=== PATIENT | male | born 1935 | race Caucasian/White ===

== ENCOUNTER 2017-12-17 19:59 | Inpatient (IN) | payer MEDICARE, BC ==
[~2017-12-17] VITALS: Ht 182.9 cm; Wt 106.6 kg
--- NOTE | 2017-12-17 21:37 | Emergency Room Report ---
History of Present Illness General Chief Complaint: Multiple Trauma/Fall Source: Patient, Family Member, EMS Present Illness HPI The patient states that he was going down the stairs and missed the last step and fell onto his right hip. He was unable to bear weight on the right leg after this. He denies any prodromal symptoms. He did not have lightheadedness or chest pain. He had no palpitations or shortness of breath. He denies that he had abdominal pain. He states he just accidentally missed the last step because he was in a hurry. He has no other injuries or complaints. Allergies: Coded Allergies: No Known Allergies (Unverified , 12/17/17) Patient History Past Medical History: see triage record, DM, HTN Social History: Denies: smoking, alcohol use, drug use Reviewed Nursing Documentation: PMH: Agreed, PSxH: Agreed Nursing Documentation-PMH Hx Cardiac Problems: Yes Hx Hypertension: Yes Hx Diabetes: Yes Review of Systems All Other Systems: negative except mentioned in HPI Physical Exam Vital Signs Date Time Temp Pulse Resp B/P (MAP) Pulse Ox O2 Delivery O2 Flow Rate FiO2 12/17/17 20:12 97.3 92 17 181/102 100 Room Air 97.3 Sp02 EP Interpretation: reviewed, normal General Appearance: no apparent distress, alert, GCS 15, non-toxic Head: normocephalic, atraumatic Eyes: bilateral eye normal inspection, bilateral eye PERRL ENT: hearing grossly normal, normal pharynx, no angioedema, normal voice Neck: full range of motion, supple/symm/no masses Respiratory: chest non-tender, lungs clear, normal breath sounds, no respiratory distress, no retraction, no accessory muscle use, speaking full sentences Cardiovascular #1: regular rate, rhythm, no edema Gastrointestinal: normal bowel sounds, non tender, soft, non-distended, no guarding, no rebound Rectal: deferred Genitourinary: normal inspection, no CVA tenderness Musculoskeletal: other - Right leg internally rotated and shortened. Pain with range of motion of the right hip. Neurologic: alert, oriented x3, responsive, motor strength/tone normal, sensory intact, speech normal Psychiatric: judgement/insight normal, memory normal, mood/affect normal, no suicidal/homicidal ideation Skin: normal color, no rash, warm/dry, well hydrated Medical Decision Making Diagnostic Impression: Primary Impression: Hip fracture, right ER Course This patient has a right hip fracture. He is admitted for surgical repair. He has no evidence of other injuries. Labs Test 12/17/17 21:20 12/18/17 08:45 Prothrombin Time 10.4 SEC (9.30-11.50) Prothromb Time International Ratio 1.0 (0.9-1.1) Activated Partial Thromboplast Time 27 SEC (23-33) Sodium Level 138 MMOL/L (136-145) Potassium Level 4.3 MMOL/L (3.5-5.1) Chloride Level 102 MMOL/L (98-107) Carbon Dioxide Level 28 MMOL/L (21-32) Anion Gap 8 mmol/L (5-15) Blood Urea Nitrogen 20 mg/dL (7-18) Creatinine 1.3 MG/DL (0.55-1.30) Estimat Glomerular Filtration Rate mL/min (>60) Glucose Level 164 MG/DL (74-106) Calcium Level 9.1 MG/DL (8.5-10.1) Total Bilirubin 0.3 MG/DL (0.2-1.0) Aspartate Amino Transf (AST/SGOT) 16 U/L (15-37) Alanine Aminotransferase (ALT/SGPT) 25 U/L (12-78) Alkaline Phosphatase 75 U/L (46-116) Total Protein 6.6 G/DL (6.4-8.2) Albumin 3.3 G/DL (3.4-5.0) Globulin 3.3 g/dL Albumin/Globulin Ratio 1.0 (1.0-2.7) White Blood Count 11.8 K/UL (4.8-10.8) Red Blood Count 4.25 M/UL (4.70-6.10) Hemoglobin 12.8 G/DL (14.2-18.0) Hematocrit 37.3 % (42.0-52.0) Mean Corpuscular Volume 88 FL (80-99) Mean Corpuscular Hemoglobin 30.0 PG (27.0-31.0) Mean Corpuscular Hemoglobin Concent 34.2 G/DL (32.0-36.0) Red Cell Distribution Width 12.4 % (11.6-14.8) Platelet Count 226 K/UL (150-450) Mean Platelet Volume 6.3 FL (6.5-10.1) Neutrophils (%) (Auto) 83.6 % (45.0-75.0) Lymphocytes (%) (Auto) 10.1 % (20.0-45.0) Monocytes (%) (Auto) 6.2 % (1.0-10.0) Eosinophils (%) (Auto) 0.0 % (0.0-3.0) Basophils (%) (Auto) 0.1 % (0.0-2.0) Hemoglobin A1c 7.7 % (4.3-6.0) Triglycerides Level 53 MG/DL (30-150) Cholesterol Level 120 MG/DL (< 200) LDL Cholesterol 56 mg/dL (<100) HDL Cholesterol 57 MG/DL (40-60) Cholesterol/HDL Ratio 2.1 (3.3-4.4) Other X-Ray Diagnostic Results Other X-Ray Diagnostic Results : X-Ray ordered: R. hip xray # of Views/Limited Vs Complete: 2 View Indication: Pain EP Interpretation: Yes Interpretation: other - irregularily concerning for hip fracture. Impression: Other Electronically Signed by: Juanita CT/MRI/US Diagnostic Results CT/MRI/US Diagnostic Results : Imaging Test Ordered: CT R. hip Impression IMPRESSION: Unusual fracture involving the intracapsular portion of the femoral neck extending into the intertrochanteric, subtrochanteric aspects of the hip and the proximal femoral shaft. [facility] has communicated the preliminary results to the Emergency Department. Their findings are largely concordant with this report. Last Vital Signs Date Time Temp Pulse Resp B/P (MAP) Pulse Ox O2 Delivery O2 Flow Rate FiO2 12/17/17 20:12 97.3 92 17 181/102 100 Room Air 97.3 Disposition: ADMITTED INPATIENT Condition: Serious Referrals: NOT CHOSEN POORNIMA/,REFERRING (PCP) MERLIN KELLY D.O. Dec 17, 2017 21:37
[2017-12-17 21:46] LABS: BASOPHILS % (AUTO) 0.4 % (0.0-2.0); EOSINOPHILS % (AUTO) 0.3 % (0.0-3.0); HEMATOCRIT 39.8 % (42.0-52.0); HEMOGLOBIN 13.6 G/DL (14.2-18.0); LYMPHOCYTES % (AUTO) 16.2 % (20.0-45.0); MEAN CORPUSCULAR VOLUME 88 FL (80-99); MONOCYTES % (AUTO) 8.5 % (1.0-10.0); NEUTROPHILS % (AUTO) 74.6 % (45.0-75.0); PLATELET COUNT 208 K/UL (150-450); RED BLOOD COUNT 4.55 M/UL (4.70-6.10); RED CELL DISTRIBUTION WIDTH 12.4 % (11.6-14.8); WHITE BLOOD COUNT 8.5 K/UL (4.8-10.8)
[2017-12-17 22:06] LABS: ANION GAP 8 mmol/L (5-15); BLOOD UREA NITROGEN 20 mg/dL (7-18); CALCIUM 9.1 MG/DL (8.5-10.1); CARBON DIOXIDE 28 MMOL/L (21-32); CHLORIDE 102 MMOL/L (98-107); CREATININE 1.3 MG/DL (0.55-1.30); POTASSIUM 4.3 MMOL/L (3.5-5.1); SODIUM 138 MMOL/L (136-145)
[2017-12-17 22:11] LABS: ALANINE AMINOTRANSFERASE 25 U/L (12-78); ALBUMIN 3.3 G/DL (3.4-5.0); ALKALINE PHOSPHATASE 75 U/L (46-116); ASPARTATE AMINO TRANSFERASE 16 U/L (15-37); BILIRUBIN,TOTAL 0.3 MG/DL (0.2-1.0)
[2017-12-17 23:10] VITALS: BP 94/47
[2017-12-18] VITALS (8 sets, daily range): BP systolic 109–154; BP diastolic 50–77
[2017-12-18] MEDS ORDERED: Morphine Sulfate 4mg/ml Inj IVP ONE
[2017-12-18] MEDS ORDERED: LANTUS SOL100 UNIT/1 SUBQ (02:04)
[2017-12-18] MEDS ORDERED: SIMVASTATIN10 MG ORAL (02:04)
[2017-12-18] MEDS ORDERED: FUROSEMIDE20 M1 ORAL (02:04)
[2017-12-18] MEDS ORDERED: POTASSIUM99 M3 PO (02:04)
[2017-12-18] MEDS ORDERED: HUMALOG100 UNIT/4 SUBQ (02:04)
[2017-12-18] MEDS ORDERED: B-12500 MC2 SL (02:04)
[2017-12-18] MEDS ORDERED: PROSCAR5 MG ORAL (02:04)
[2017-12-18] MEDS ORDERED: TAMSULOSIN HCL0.4 MG ORAL (02:04)
[2017-12-18] MEDS ORDERED: MULTIVITAMINS1 EAC2 ORAL (02:04)
[2017-12-18] MEDS ORDERED: ASPIRIN325 MG ORAL (02:04)
[2017-12-18] MEDS ORDERED: VITAMIN D1000 UNI1 ORAL (02:04)
[2017-12-18] MEDS ORDERED: NORVASC5 MG ORAL (02:04)
[2017-12-18] MEDS ORDERED: DIOVAN HCT 1601 EACH ORAL (02:04)
[2017-12-18] MEDS ORDERED: ALLOPURINOL100 M1 ORAL (02:04)
[2017-12-18] MEDS ORDERED: GLUCOPHAGE850 MG ORAL ×2 (02:04)
[2017-12-18] MEDS ORDERED: Morphine Sulfate 4mg/ml Inj IVP PRN ×2 (03:45→15:45)
[2017-12-18] MEDS ORDERED: Norco 5mg/325mg tab ORAL PRN ×2 (03:45→15:45)
[2017-12-18] MEDS: NovoLOG Insulin Flexpen SUBQ SCH ×6 (07:52→20:40)
[2017-12-18] MEDS ORDERED: Vitamin D 1000 IU Tab ORAL SCH (09:00)
[2017-12-18] MEDS ORDERED: Enoxaparin 40mg Inj SUBQ SCH (09:00)
[2017-12-18] MEDS ORDERED: Irbesartan 150mg tablet ORAL SCH (09:00)
[2017-12-18] MEDS ORDERED: Allopurinol 100mg Tab ORAL SCH (09:00)
[2017-12-18] MEDS ORDERED: hydroCHLOROthiazide 12.5mg TAB ORAL SCH (09:00)
[2017-12-18 09:05] LABS: BASOPHILS % (AUTO) 0.1 % (0.0-2.0); HEMATOCRIT 37.3 % (42.0-52.0); HEMOGLOBIN 12.8 G/DL (14.2-18.0); LYMPHOCYTES % (AUTO) 10.1 % (20.0-45.0); MEAN CORPUSCULAR VOLUME 88 FL (80-99); MONOCYTES % (AUTO) 6.2 % (1.0-10.0); NEUTROPHILS % (AUTO) 83.6 % (45.0-75.0); PLATELET COUNT 226 K/UL (150-450); RED BLOOD COUNT 4.25 M/UL (4.70-6.10); RED CELL DISTRIBUTION WIDTH 12.4 % (11.6-14.8); WHITE BLOOD COUNT 11.8 K/UL (4.8-10.8)
[2017-12-18 09:14] LABS: CHOLESTEROL 120 MG/DL (< 200); HDL CHOLESTEROL 57 MG/DL (40-60); TRIGLYCERIDES 53 MG/DL (30-150)
--- NOTE | 2017-12-18 10:21 | Diagnostic Imaging Report ---
Indication: Hip pain Technique: continuous helical imaging in the transaxial plane was performed from the iliac crests to the pubic symphysis with attention to the right hip. Coronal 2-D reformatted images were also generated. Study obtained in a Siemens Sensation [address] total DLP: 1180.33 mGycm CTD/vol: 20.41 mGy Comparison: None Findings: Unusual fracture of the intratrochanteric region of the right hip noted. There is a fracture of the lesser trochanter and intertrochanteric region. However the fracture line extends into the intracapsular aspect of the femoral neck. The fracture extends inferiorly as a spiral type fracture involving the subtrochanteric and proximal shaft of the femur. Vascular calcifications are present within the femoral and iliac arteries. The bones are osteopenic. There is mild arthrosis involving both hips. IMPRESSION: Unusual fracture involving the intracapsular portion of the femoral neck extending into the intertrochanteric, subtrochanteric aspects of the hip and the proximal femoral shaft. [facility] has communicated the preliminary results to the Emergency Department. Their findings are largely concordant with this report. The CT scanner at [facility] is accredited by the [employer] and the scans are performed using dose optimization techniques as appropriate to a performed exam including Automatic Exposure control.
--- NOTE | 2017-12-18 11:05 | Diagnostic Imaging Report ---
Indication: pain Pelvic trauma and pain Findings: Single AP view of the pelvis and right hip was performed. There is a fracture of the right proximal femur and intertrochanteric region with involvement of the lesser trochanter. The study is significantly limited due to artifacts. CT was obtained subsequently. IMPRESSION: Acute fracture. Please refer to the CT report
--- NOTE | 2017-12-18 16:00 | History & Physical ---
History and Physical History & Physicial seen and examined. Dic completed Almita Humphreys MD Dec 18, 2017 16:00
--- NOTE | 2017-12-18 16:04 | General Progress Note ---
Assessment/Plan Status: stable Assessment/Plan 1- Mechanical fall. Rt Hip fracture 2- CAD- h/o of 3. HTN 4. HLP 5. Gout 6. BPH Plan: Dr Dahl - sx Dr Calero- Cardio Dr Cleary-infection Dr Turpin- Endo Per family request, ok to transfer to [place] at this time Will transfer to [facility] ROS Limited/Unobtainable: No Constitutional: Reports: no symptoms HEENT: Reports: no symptoms Cardiovascular: Reports: no symptoms Allergies: Coded Allergies: No Known Allergies (Unverified , 12/17/17) Objective Last 24 Hour Vital Signs Date Time Temp Pulse Resp B/P (MAP) Pulse Ox O2 Delivery O2 Flow Rate FiO2 12/18/17 14:14 81 20 138/65 95 Room Air 12/18/17 13:06 98.7 12/18/17 12:07 98.7 12/18/17 12:00 98.6 88 18 139/60 95 Room Air 98.6 12/18/17 12:00 98.6 88 20 139/60 93 Room Air 98.6 12/18/17 09:07 122/77 12/18/17 09:06 135 126/77 12/18/17 08:00 98.7 131 20 126/77 95 Room Air 98.7 12/18/17 04:00 98.7 91 19 136/59 98 Room Air 98.7 12/18/17 02:35 98.6 88 18 142/63 98 Room Air 98.6 12/18/17 02:15 98.0 70 18 154/63 95 Room Air 98.0 12/18/17 02:05 98.0 70 18 154/63 95 Room Air 98.0 12/18/17 00:26 98.0 12/17/17 23:56 97.8 12/17/17 23:10 97.8 66 18 94/47 96 Room Air 97.8 12/17/17 20:12 97.3 92 17 181/102 100 Room Air 97.3 Intake and Output 12/17/17 12/18/17 19:00 07:00 # Voids 1 Laboratory Tests 12/17/17 21:20: White Blood Count 8.5, Red Blood Count 4.55L, Hemoglobin 13.6L, Hematocrit 39.8L , Mean Corpuscular Volume 88, Mean Corpuscular Hemoglobin 29.9, Mean Corpuscular Hemoglobin Concent 34.1, Red Cell Distribution Width 12.4, Platelet Count 208, Mean Platelet Volume 6.5, Neutrophils (%) (Auto) 74.6, Lymphocytes (% ) (Auto) 16.2L, Monocytes (%) (Auto) 8.5, Eosinophils (%) (Auto) 0.3, Basophils (%) (Auto) 0.4, Prothrombin Time 10.4, Prothromb Time International Ratio 1.0, Activated Partial Thromboplast Time 27, Sodium Level 138, Potassium Level 4.3, Chloride Level 102, Carbon Dioxide Level 28, Anion Gap 8, Blood Urea Nitrogen 20H, Creatinine 1.3, Estimat Glomerular Filtration Rate , Glucose Level 164H, Calcium Level 9.1, Total Bilirubin 0.3, Aspartate Amino Transf (AST/SGOT) 16, Alanine Aminotransferase (ALT/SGPT) 25, Alkaline Phosphatase 75, Total Protein 6.6, Albumin 3.3L, Globulin 3.3, Albumin/Globulin Ratio 1.0 12/18/17 08:45: White Blood Count 11.8H, Red Blood Count 4.25L, Hemoglobin 12.8L, Hematocrit 37.3L, Mean Corpuscular Volume 88, Mean Corpuscular Hemoglobin 30.0, Mean Corpuscular Hemoglobin Concent 34.2, Red Cell Distribution Width 12.4, Platelet Count 226, Mean Platelet Volume 6.3L, Neutrophils (%) (Auto) 83.6H, Lymphocytes (%) (Auto) 10.1L, Monocytes (%) (Auto) 6.2, Eosinophils (%) (Auto) 0.0, Basophils (%) (Auto) 0.1, Hemoglobin A1c 7.7H, Triglycerides Level 53, Cholesterol Level 120, LDL Cholesterol 56, HDL Cholesterol 57, Cholesterol/HDL Ratio 2.1L Height (Feet): 6 Height (Inches): 0.00 Weight (Pounds): 235 General Appearance: no apparent distress EENT: PERRL/EOMI Neck: supple Cardiovascular: normal rate Respiratory/Chest: lungs clear Abdomen: soft Extremities: non-tender, other - righ femur fractue, and decreased ROM 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
--- NOTE | 2017-12-18 16:24 | Consultation ---
Consult Note Consult Note ID DIC # [id number] PARVEZ CROWE M.D. Dec 18, 2017 16:24
[2017-12-18] MEDS ORDERED: NovoLOG Insulin Flexpen SUBQ SCH (16:50)
--- NOTE | 2017-12-18 18:54 | Cardiology Progress Note ---
Assessment/Plan Assessment/Plan The patient is seen and examined, full consult note will be dictated shortly. Objective Last 24 Hour Vital Signs Date Time Temp Pulse Resp B/P (MAP) Pulse Ox O2 Delivery O2 Flow Rate FiO2 12/18/17 16:00 99.0 91 21 129/67 94 Room Air 99.0 91 12/18/17 16:00 89 12/18/17 14:14 81 20 138/65 95 Room Air 12/18/17 13:06 98.7 12/18/17 12:07 98.7 12/18/17 12:00 98.6 88 18 139/60 95 Room Air 98.6 12/18/17 12:00 98.6 88 20 139/60 93 Room Air 98.6 12/18/17 09:07 122/77 12/18/17 09:06 135 126/77 12/18/17 08:00 98.7 131 20 126/77 95 Room Air 98.7 12/18/17 04:00 98.7 91 19 136/59 98 Room Air 98.7 12/18/17 02:35 98.6 88 18 142/63 98 Room Air 98.6 12/18/17 02:15 98.0 70 18 154/63 95 Room Air 98.0 12/18/17 02:05 98.0 70 18 154/63 95 Room Air 98.0 12/18/17 00:26 98.0 12/17/17 23:56 97.8 12/17/17 23:10 97.8 66 18 94/47 96 Room Air 97.8 12/17/17 20:12 97.3 92 17 181/102 100 Room Air 97.3 Intake and Output 12/17/17 12/18/17 19:00 07:00 # Voids 1 Laboratory Tests Test 12/17/17 21:20 12/18/17 08:45 White Blood Count 8.5 K/UL (4.8-10.8) 11.8 K/UL (4.8-10.8) H Red Blood Count 4.55 M/UL (4.70-6.10) L 4.25 M/UL (4.70-6.10) L Hemoglobin 13.6 G/DL (14.2-18.0) L 12.8 G/DL (14.2-18.0) L Hematocrit 39.8 % (42.0-52.0) L 37.3 % (42.0-52.0) L Mean Corpuscular Volume 88 FL (80-99) 88 FL (80-99) Mean Corpuscular Hemoglobin 29.9 PG (27.0-31.0) 30.0 PG (27.0-31.0) Mean Corpuscular Hemoglobin Concent 34.1 G/DL (32.0-36.0) 34.2 G/DL (32.0-36.0) Red Cell Distribution Width 12.4 % (11.6-14.8) 12.4 % (11.6-14.8) Platelet Count 208 K/UL (150-450) 226 K/UL (150-450) Mean Platelet Volume 6.5 FL (6.5-10.1) 6.3 FL (6.5-10.1) L Neutrophils (%) (Auto) 74.6 % (45.0-75.0) 83.6 % (45.0-75.0) H Lymphocytes (%) (Auto) 16.2 % (20.0-45.0) L 10.1 % (20.0-45.0) L Monocytes (%) (Auto) 8.5 % (1.0-10.0) 6.2 % (1.0-10.0) Eosinophils (%) (Auto) 0.3 % (0.0-3.0) 0.0 % (0.0-3.0) Basophils (%) (Auto) 0.4 % (0.0-2.0) 0.1 % (0.0-2.0) Prothrombin Time 10.4 SEC (9.30-11.50) Prothromb Time International Ratio 1.0 (0.9-1.1) Activated Partial Thromboplast Time 27 SEC (23-33) Sodium Level 138 MMOL/L (136-145) Potassium Level 4.3 MMOL/L (3.5-5.1) Chloride Level 102 MMOL/L (98-107) Carbon Dioxide Level 28 MMOL/L (21-32) Anion Gap 8 mmol/L (5-15) Blood Urea Nitrogen 20 mg/dL (7-18) H Creatinine 1.3 MG/DL (0.55-1.30) Estimat Glomerular Filtration Rate mL/min (>60) Glucose Level 164 MG/DL (74-106) H Calcium Level 9.1 MG/DL (8.5-10.1) Total Bilirubin 0.3 MG/DL (0.2-1.0) Aspartate Amino Transf (AST/SGOT) 16 U/L (15-37) Alanine Aminotransferase (ALT/SGPT) 25 U/L (12-78) Alkaline Phosphatase 75 U/L (46-116) Total Protein 6.6 G/DL (6.4-8.2) Albumin 3.3 G/DL (3.4-5.0) L Globulin 3.3 g/dL Albumin/Globulin Ratio 1.0 (1.0-2.7) Hemoglobin A1c 7.7 % (4.3-6.0) H Triglycerides Level 53 MG/DL (30-150) Cholesterol Level 120 MG/DL (< 200) LDL Cholesterol 56 mg/dL (<100) HDL Cholesterol 57 MG/DL (40-60) Cholesterol/HDL Ratio 2.1 (3.3-4.4) RIDGE HANSEN Dec 18, 2017 18:54
[2017-12-18] MEDS ORDERED: Digoxin 0.5mg/2ml Inj IVP ONE (19:30)
[2017-12-18] MEDS ORDERED: Tamsulosin 0.4mg cap ORAL SCH ×2 (21:00)
[2017-12-18] MEDS ORDERED: Levemir Flexpen SUBQ SCH ×3 (21:00)
[2017-12-18] MEDS ORDERED: dilTIAZem HCl 30mg tab ORAL SCH (22:00)
--- NOTE | 2017-12-18 23:30 | Consultation ---
DATE OF CONSULTATION: 12/18/2017 REFERRING PHYSICIAN: Almita Humphreys M.D. REASON FOR CONSULTATION: Diabetes management. HISTORY OF PRESENT ILLNESS: Mr. Bush is an 82-year-old male with past medical history of type [address] 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 He had a fall from stairs and which led to hip fracture. He is a candidate for hip surgery followed by paramedics brought up to the [facility]. He was admitted to the telemetry bed and he is willing to be transferred to [facility], waiting for a bed. Diabetes, as an outpatient was started on Metformin 850 twice a day, Lantus 24 units at bedtime, and Humalog 12 units before each meal. He has not been doing his daily schedule therefore glucose is elevated. PAST MEDICAL HISTORY: 1. Diabetes as above. 2. Hypertension. 3. Obesity. PAST SURGICAL HISTORY: None. SOCIAL HISTORY: No smoking, alcohol, or drug use. REVIEW OF SYSTEMS: A 12-point review of systems was performed and pertinent positives and negatives are mentioned in present illness. FAMILY HISTORY: Diabetes. MEDICATIONS: Reviewed and reconciled. Diabetes medication as mentioned in the history of present illness. LABORATORY DATA: WBC 11.8, hemoglobin 12.8, hematocrit 37.3, and platelets of 226,000. Sodium 138, potassium 4.3, chloride 102, bicarb 28, BUN 20, and creatinine 1.3. Glucose of 164. Hemoglobin A1c of 7.7. PHYSICAL EXAMINATION: VITAL SIGNS: Blood pressure is 140/80, pulse 70, and temperature 98.2. HEENT: Pupils are equal and reactive to light. Sclerae are anicteric. NECK: No JVD. No thyromegaly. LUNGS: Clear. HEART: Regular rate and rhythm. ABDOMEN: Positive bowel sounds. EXTREMITIES: Positive for edema. DIAGNOSES: 1. Hip fracture. 2. Diabetes out of control. 3. Hypertension. PLAN: 1. Resume Levemir 24 units at bedtime. 2. NovoLog 12 units before each meal. 3. Metformin increased to b.i.d. 4. NovoLog sliding scale before meals and at bedtime. 5. Further adjustment according to blood glucose values. Care discussed with the patient's daughter at the bedside. Thank you, Dr. Humphreys, for the courtesy of this consultation. Carlos Andrade M.D. DR: EDIE JOB#: [id number] CC: ROGER
--- NOTE | 2017-12-18 23:30 | History and Physical Report ---
DATE OF ADMISSION: 12/17/2017 SOURCE OF INFORMATION: The patient and EMR. HISTORY OF PRESENT ILLNESS: The patient is a pleasant 82-year-old white male with history of dementia. The patient is status post mechanical fall and trip at home followed by the x-ray proven fracture of the right hip based on emergency report. The patient denies any loss of consciousness. Denies any seizure activity. Denies any nausea, vomitus, diarrhea, or constipation. At the time of evaluation, the patient appears stable and appears the pain is in good control. PAST MEDICAL HISTORY: Diabetes, hypertension, coronary artery disease, hypertension and history of anticoagulation utilization (details unknown). MEDICATIONS: Home medications including but not limited to allopurinol, amlodipine, aspirin, finasteride, Lasix, valsartan, metformin, insulin Lantus, potassium chloride and simvastatin. ALLERGIES: NKDA. SOCIAL HISTORY: No prior documented history of alcohol abuse, illicit drug abuse, or smoking was reported. FAMILY HISTORY: Reviewed and noncontributory. REVIEW OF SYSTEMS: All 12 elements of review of systems reviewed. Pertinent positives and negatives as above. PHYSICAL EXAMINATION: VITAL SIGNS: Blood pressure 120/80, temperature 98.2 degrees, pulse oximetry 98% on room air and respiratory rate 18. HEAD AND NECK: Atraumatic and normocephalic. CHEST: Clear to auscultation. No wheezing. No crackles. ABDOMEN: Soft. No organomegaly. MUSCULOSKELETAL: No gross lateralized motor deficit. Positive for decreased range of motion in the right lower extremity. NEUROLOGIC: Awake, alert, and oriented times 2 to 3. Decreased attention span. Decreased memory, short-term and long-term, gross evidence of dementia. No gross cranial nerve deficits. PSYCHIATRIC: Mood and affect are appropriate and normal. LABORATORY AND DIAGNOSTIC DATA: Labs dated 12/17/2017 shows WBC 8.5, hemoglobin 15.6 and platelet count of 208,000. Sodium 138, potassium 4.3, BUN 20 and creatinine 1.3. AST and ALT are within normal limits. Pelvic x-ray shows acute fracture of the right proximal femur in intertrochanteric region. CT scan of the hip shows intracapsular portion of the femoral neck fracture. ASSESSMENT: 1. Mechanical fall, acute right-sided proximal femur and intertrochanteric hip fracture. 2. Coronary artery disease - history of no evidence of active acute coronary syndrome. 3. Anemia. 4. Hypertension. 5. Gout. 6. Hyperlipidemia. 7. Benign prostatic hypertrophy. 8. Diabetes, type 2. PLAN OF CARE: I discussed this case with Dr. Dahl, orthopedic surgeon. I consulted Cardiology, Dr. Calero; Infectious Disease, Dr. Cleary; and vmware systems administrator, Dr. Andrade. Continue with current management. COMMENTS: Family and the patient notified me that they would like to be transferred to [facility]. After my conversation with Dr. Dahl, I advised the family regarding the medical necessity of having surgery as soon as possible. I advised them that the unnecessary wait time will decrease the favorable outcome of the surgery. They understood. However, they would like to be transferred to other facility. Case was discussed with case management. We will order for transfer pending the availability of bed. Okay to transfer. Almita Humphreys M.D. DR: Chetan JOB#: [id number] CC:
--- NOTE | 2017-12-19 00:15 | Consultation ---
DATE OF CONSULTATION: 12/18/2017 CARDIOLOGY CONSULTATION CONSULTING PHYSICIAN: Wallace Calero M.D. REFERRING PHYSICIAN: Almita Humphreys M.D. REASON FOR CONSULTATION: Management of tachycardia in the patient with status post fall and right hip fracture. HISTORY OF PRESENT ILLNESS: The patient is a very pleasant 82-year-old gentleman who presents to the hospital with right hip pain after an episode of mechanical fall while he was trying to go down the stairs and missed the last step and fell onto his right hip. He was unable to bear weight on the right leg. He was brought in to this facility. There was no loss of consciousness involved. On arrival to the hospital, blood pressure was 181/102 and heart rate of 92. He was admitted to surgical unit in anticipation of surgical repair. Cardiology consultation was made as he became tachycardic while in the surgical unit and was brought down to the telemetry unit. His rhythm at the time of arrival to this unit was multifocal tachycardia. PAST MEDICAL HISTORY: 1. History of hypertension. 2. History of diabetes mellitus. 3. History of BPH. 4. History of gout. PAST SURGICAL HISTORY: None. SOCIAL HISTORY: Denies any tobacco, alcohol, or illicit drug use. MEDICATIONS: List of medications at home; allopurinol 100 mg p.o. daily, Norvasc 5 mg p.o. daily, aspirin 325 mg p.o. daily, vitamin D 2000 units p.o. daily, vitamin B12 500 mcg p.o. daily, Proscar 5 mg p.o. daily, Lasix 20 mg p.o. daily, Lantus insulin 34 units subcutaneous at bedtime, Humalog insulin 12 units subcutaneous t.i.d., Glucophage 150 mg twice daily, multivitamin 1 tablet p.o. daily, potassium gluconate, simvastatin 10 mg p.o. at bedtime, tamsulosin 0.4 mg p.o. at bedtime, valsartan hydrochlorothiazide 160/12.5 mg p.o. daily. ALLERGIES: No known drug allergies. FAMILY HISTORY: No premature coronary artery disease in first-degree relatives. REVIEW OF SYSTEMS: HEENT: Denies any headache, diplopia, or blurred vision. CONSTITUTIONAL: Denies any fever, chills, night sweats, or weight loss. CARDIOVASCULAR: Denies any chest pain, shortness breath, PND, orthopnea, leg swelling. PULMONARY: Denies any cough, hemoptysis, or wheezing. GASTROINTESTINAL: Denies any nausea, vomiting, diarrhea, constipation, abdominal pain, or GI bleed. GENITOURINARY: Denies any hematuria, dysuria, incontinence. NEUROLOGY: Denies any motor dysfunction, sensory deficit, or altered speech. MUSCULOSKELETAL: Complains of right knee pain. Inability to bear weight on the right leg. PHYSICAL EXAMINATION: VITAL SIGNS: Blood pressure is 181/102, respirations of 17, pulse of 92, temperature 97.3 degrees Fahrenheit, and O2 saturation 100% on room air. GENERAL: The patient is a very pleasant, 82-year-old gentleman, seen in Cardiology consultation,who is in no apparent respiratory distress. HEENT: Atraumatic and normocephalic. Anicteric. Pupils are equal, round, and reactive to light and accommodation. Extraocular muscles intact. NECK: JVP less than 5 cm. No carotid bruits. Carotid upstrokes 2+ bilaterally. CVS: Normal S1 and S2. Irregularly irregular rhythm. No murmurs, gallops, or rubs. PMI is at fourth intercostal space at the midclavicular line. LUNGS: Clear to auscultation bilaterally. ABDOMEN: Soft, nontender, and nondistended. No hepatosplenomegaly. Positive bowel sounds. EXTREMITIES: Right leg is shortened in external rotation, otherwise no edema, clubbing or cyanosis. LABORATORY FINDINGS: Sodium was 138, potassium 4.3, chloride 102, bicarbonate 28, BUN of 20, creatinine 1.3, glucose is 164. Hemoglobin A1c was 7.7. Calcium is 9.1. Triglyceride 53, total cholesterol 120, LDL is 156, HDL of 57. INR is 1.0. WBC is 8.5, hemoglobin 13.6, hematocrit 39.8, and platelet count is 208. There is no 12-lead electrocardiogram in the chart; however, 2D echocardiography has shown normal left ventricular systolic function to the extent visualized. The study is technically difficult. Mild LVH, mild left atrial enlargement, mild aortic root dilatation measured at 4.2 cm, mild mitral regurgitation, grade 1 LV diastolic dysfunction, mild tricuspid regurgitation with right ventricular systolic pressure measured at 45 mmHg consistent with moderate pulmonary hypertension. Chest x-ray not available. ASSESSMENT AND PLAN: The patient is a very pleasant 82-year-old gentleman, seen in Cardiology consultation at request of Dr. Humphreys. 1. Tachycardia, this appears to be multifocal atrial tachycardia based on the rhythm strip from the monitor however 12-lead electrocardiogram has been requested. I would like to give the patient one dose of digoxin and switch the patient from dihydropyridine calcium-channel rosales to a non-dihydropyridine with AV jerome properties. The combination should help better ventricular response with multifocal atrial tachycardia. 2. Status post right hip fracture in anticipation of ORIF right hip, there is a possibility that the patient be transferred to [facility]. We will continue DVT prophylaxis in the meantime. The duration of DVT prophylaxis following hip surgery will be 35 days ideally with Apixaban twice daily. 3. History of hypertension. I would like to continue irbesartan and will switch amlodipine to Cardizem. I will put a hold on both furosemide and hydrochlorothiazide as the patient appears to be dehydrated and his creatinine at this time is 1.3. We will encourage the patient to have p.o. liquids until this surgery. One may have to put hold on the metformin in anticipation of this surgery as well. 4. A 2D echocardiography is technically difficult study shows overall normal LV systolic function. 5. Moderate pulmonary hypertension. 6. Mild aortic root dilatation measured at 4.2 centimeters. Serial echocardiography is required on an annual basis. I would like to thank, Dr. Humphreys, for the courtesy of this consultation. Wallace Calero M.D. DR: Brit JOB#: [id number] CC:
--- NOTE | 2017-12-19 00:15 | Consultation ---
DATE OF CONSULTATION: 12/18/2017 INFECTIOUS DISEASE CONSULTATION CONSULTING PHYSICIAN: Jamaal Cleary M.D. REQUESTING PHYSICIAN: Almita Humphreys M.D.. REASON FOR CONSULTATION: Evaluation of patient for leukocytosis and possible need for antibiotics prior to the surgery. HISTORY OF PRESENT ILLNESS: The patient is an 82-year-old male with multiple medical problems as listed below, who was brought to the hospital after the patient had a fall and subsequent to that developed a right hip fracture. The patient was found to have leukocytosis. Infectious Disease consultation has been requested for further evaluation of the patient's antibiotic management. PAST MEDICAL HISTORY: 1. Hard of hearing. 2. CAD, status post stents x3. 3. Hypertension. 4. Diabetes. ALLERGIES: No known drug allergies. SOCIAL HISTORY: The patient lives at home. FAMILY HISTORY: Noncontributory. REVIEW OF SYSTEMS: HEENT: No recent change in vision or hearing. PULMONARY: No cough or shortness of breath. CARDIOVASCULAR: Palpitations. GASTROINTESTINAL/ABDOMEN: No nausea or vomiting. GENITOURINARY: No dysuria. MUSCULOSKELETAL: As mentioned above. PHYSICAL EXAMINATION: VITAL SIGNS: Temperature 98.6, pulse 86, respiratory rate 18, and blood pressure 139/60. HEENT: No pale conjunctivae. No icterus. NECK: No lymphadenopathy. CHEST: Clear. HEART: S1 and S2. ABDOMEN: Soft. EXTREMITIES: No cyanosis at this time. NEUROLOGIC: Awake and alert. LABORATORY AND DIAGNOSTIC DATA: White blood cells 11.8, hemoglobin 12.8, platelets 224,000. BUN 20, creatinine 1.3. Liver function tests are unremarkable. Hip x-ray shows fracture of right proximal femur. ASSESSMENT: The patient is an 82-year-old male with, 1. Leukocytosis (due to acute stress). Based on exam and history, no evidence of infection. 2. Afebrile. 3. Right hip fracture. PLAN: 1. We will monitor the patient off of antibiotics. 2. Monitor CBC. 3. Monitor BMP. 4. If the patient develops fever or worsening leukocytosis, we may consider starting the patient on antibiotic treatment. Thank you, Dr. Humphreys, for allowing me to participate in the care of this patient. I will follow the patient with you during this hospitalization. Jamaal Cleary M.D. DR: SELMA JOB#: [id number] CC:
[2017-12-19] MEDS ORDERED: hydroCHLOROthiazide 12.5mg TAB ORAL SCH (09:00)
[2017-12-19] MEDS ORDERED: Enoxaparin 40mg Inj SUBQ SCH (09:00)
[2017-12-19] MEDS ORDERED: Irbesartan 150mg tablet ORAL SCH (09:00)
[2017-12-19] MEDS ORDERED: Allopurinol 100mg Tab ORAL SCH (09:00)
[2017-12-19] MEDS ORDERED: Vitamin D 1000 IU Tab ORAL SCH (09:00)
--- NOTE | 2017-12-20 14:58 | Cardiology Report ---
APPROVED REPORT EXAM: Two-dimensional and M-mode echocardiogram with Doppler and color Doppler. INDICATION Hypertension/HCVD M-Mode DIMENSIONS IVSd1.8 (0.7-1.1cm)Left Atrium (MM)5.3 (1.6-4.0cm) LVDd4.5 (3.5-5.6cm)Aortic Root4.2 (2.0-3.7cm) PWd1.4 (0.7-1.1cm)Aortic Cusp Exc.2.2 (1.5-2.0cm) LVDs4.3 (2.5-4.0cm) PWs0.9 cm Technically difficult study due to poor parasternal acoustical windows. Study quality precludes accurate assessment of regional wall motion. Normal left ventricular chamber size, systolic function and wall motion to extent visualized. Left ventricular ejection fraction estimated to be grossly normal. Mild left ventricular hypertrophy. Anterior Echo-free space, may be due to pericardial fat or effusion. Mild left atrial enlargement. Right cardiac chamber sizes are within normal limits. Mild aortic root dilatation. Mild focal aortic valve sclerosis with adequate cusp excursion. Mildly thickened mitral valve leaflets with normal excursion. Mild mitral annulus and aortic root calcification. Normal pulmonic valve structure. Normal tricuspid valve structure. IVC dilated at 2.3 cm with / without physiological collapse. A color flow and spectral Doppler study was performed and revealed: Trace aortic insufficiency. Mild mitral regurgitation. Mitral diastolic velocities suggest mild left ventricular diastolic dysfunction (Grade I). Mild tricuspid regurgitation. Tricuspid systolic velocities suggests peak right ventricular systolic pressure of 45 mmHg, consistent with moderate pulmonary hypertension. Trace pulmonic regurgitation present.
--- NOTE | 2017-12-21 11:38 | Discharge Summary ---
Discharge Summary Hospital Course Date of Admission Dec 17, 2017 at 22:05 Date of Discharge Dec 18, 2017 at 22:50 Admitting Diagnosis RIGHT HIP FRACTURE HPI Mian Bush is a 82 year old male who was admitted on Dec 17, 2017 at 22:05 for Right Hip Fracture Hospital Course dc summary #[id number] Discharge Condition Upon Discharge: stable Discharge Disposition Patient was transferred to [facility] Discharge Diagnoses: Discharge Instructions Discharge Instructions Special Instructions I have been assigned to complete a D/C Summary on this account. I was not involved in the patient management Joanna Rowland NP ([place]tein) Dec 21, 2017 11:38
--- NOTE | 2017-12-22 00:30 | Discharge Summary 2 SIG ---
DATE OF ADMISSION: 12/17/2017 DATE OF DISCHARGE: 12/18/2017 REASON FOR ADMISSION: 82-year-old male with past medical history of diabetes, hypertension, coronary artery disease, hyperlipidemia, BPH, and dementia, sustained mechanical fall at home and brought to emergency room for evaluation. He denied loss of consciousness, lightheadedness, or head trauma. No palpitations or shortness of breath. No chest pain. Workup in the emergency room revealed right femur and intertrochanteric region hip fracture. The patient was admitted for further management. HOSPITAL COURSE: The patient was admitted. Orthopedic surgeon consult along with the supervisor screen printing and regenerator operator consults were requested. The patient had leukocytosis, and ID consult requested as well. Echocardiogram was done in preparation for cardiac clearance for surgery. It revealed preserved ejection fraction and right ventricular systolic pressure of 45 consistent with moderate pulmonary hypertension. The patient was on telemetry floor. The patient noted to have tachycardia. Adult Educator seen and evaluated the patient. According to supervisor screen printing, the patient had a multifocal atrial tachycardia based on the rhythm strip from the telemetry. Adult Educator gave the patient one dose of digoxin and switched him from dihydropyridine calcium channel rosales (Norvasc) to a non-dihydropyridine (Cardizem) with AV jerome properties in order to help with better ventricular response with multifocal atrial tachycardia. The patient was started on the DVT prophylaxis. The patient will need DVT prophylaxis after surgery. Adult Educator recommended duration of coagulation 35 days ideally with Apixaban twice daily. Blood pressure was managed on ARB and Cardizem. Diuretics were on hold. The patient appeared to be dehydrated. Creatinine slightly up -1.3. Facility Service Associate seen and evaluated the patient due to the diabetes out of control. Hemoglobin A1c -7.7. The patient started on Levemir, NovoLog pre-meal, and sliding scale of insulin as needed with diabetic diet. Infectious Disease doctor stated that leukocytosis was likely reactive due to the stress of fracture and recommended to keep the patient off antibiotics. No clear evidence of infection. Condition was discussed with the orthopedic surgeon, who recommended to proceed with surgery soon to improve outcome from the surgery. However, family insisted to transfer the patient to [facility] for surgery. Family was advised that unnecessary wait time will decrease the favorable outcome of the surgery. The family verbalized understanding, but still expressed the wish to transfer the patient to [facility]. The patient was placed on the waiting list for transfer. As the bed became available, the patient subsequently next day was transferred to [facility] for further management. FINAL DIAGNOSES: 1. Status post mechanical fall. 2. Acute right proximal femoral and intertrochanteric region fracture. 3. Multifocal atrial tachycardia. 4. Moderate pulmonary hypertension. 5. Hypertension. 6. Diabetes out of control. 7. Coronary artery disease. 8. Benign prostatic hypertrophy. 9. Hyperlipidemia. DISCHARGE MEDICATIONS: List of medications was sent to accepting facility. DISCHARGE INSTRUCTIONS: The patient was transferred to [facility] for further management. Almita Humphreys M.D. I have been assigned to dictate discharge summary on this account and I was not involved in the patient's management. Joanna CunhaLewis County General Hospitalrosalina N.PKathy DR: Elsa JOB#: [id number] CC: ROGER
== END 2017-12-18 22:50 | disposition short-term general hospital (02) | DRG 536 ==
LOC: EDBD 19:59 → EMR 21:00 → 3E 22:05 → EDBEDREQ 12-18 01:04 → 2E 12-18 14:32
DX: S72.141A Displaced intertrochanteric fracture of right femur, initial encounter for closed fracture (principal); E11.65 Type 2 diabetes mellitus with hyperglycemia; I27.20 Pulmonary hypertension, unspecified; I47.1 Supraventricular tachycardia; D64.9 Anemia, unspecified; E78.5 Hyperlipidemia, unspecified; I10 Essential (primary) hypertension; M10.9 Gout, unspecified; I25.10 Atherosclerotic heart disease of native coronary artery without angina pectoris; W01.0XXA Fall on same level from slipping, tripping and stumbling without subsequent striking against object, initial encounter; Y92.009 Unspecified place in unspecified non-institutional (private) residence as the place of occurrence of the external cause; N40.0 Benign prostatic hyperplasia without lower urinary tract symptoms; Z79.4 Long term (current) use of insulin; H91.90 Unspecified hearing loss, unspecified ear; Z95.5 Presence of coronary angioplasty implant and graft
CPT/HCPCS: 36415; 72170; 80053; 80061; 82962; 83036; 85025; 85610; 85730; 93005; 93306; 99285; J1815; S5561